=== PATIENT | female | born 1995 | race Caucasian/White ===

== ENCOUNTER 2018-03-13 15:33 | Emergency (ER) | payer SELFPAY, OTHER | END 2018-03-13 17:18 | disposition home or self-care (01) | LOC: FTE 15:33 | DX: S51.812A Laceration without foreign body of left forearm, initial encounter (principal); W26.8XXA Contact with other sharp object(s), not elsewhere classified, initial encounter; Y92.9 Unspecified place or not applicable | CPT/HCPCS: 12002; 99283-25 ==